=== PATIENT | male | born 1960 | race Caucasian/White ===

== ENCOUNTER 2018-08-20 05:41 | Inpatient (IN) | payer OTHER ==
[2018-08-20] MEDS ORDERED: CEFAZOLIN 2 GM/50 ML (PMX) 50 ML IVPB (06:00)
[2018-08-20] MEDS ORDERED: LACTATED RINGER'S 1,000 ML IV* (06:00)
[2018-08-20] MEDS ORDERED: HEPARIN 1000 UNITS/ML 10 ML INJ (07:29)
[2018-08-20] MEDS ORDERED: ROCURONIUM 50 MG INJ ×2 (07:52→08:44)
[2018-08-20] MEDS ORDERED: NEOSTIGMINE 3 MG/3 ML SYRINGE ×2 (07:52→08:44)
[2018-08-20] MEDS ORDERED: LIDOCAINE 2% (SDV) 5 ML INJ (07:52)
[2018-08-20] MEDS ORDERED: GLYCOPYRROLATE 0.4 MG INJ ×3 (07:52→08:44)
[2018-08-20] MEDS ORDERED: MEPERIDINE 100 MG INJ (07:52)
[2018-08-20] MEDS ORDERED: PROPOFOL 20 ML (07:52)
[2018-08-20] MEDS ORDERED: SUCCINYLCHOLINE CHLORIDE 100 MG/5 ML SYG IV (07:52)
[2018-08-20] MEDS: THROMBIN (BOVINE) 5,000 UNIT VIAL TP (08:56)
[2018-08-20] MEDS: BUPIVACAINE 0.5%/EPI (SDV) 30 ML INJ (08:56)
[2018-08-20] MEDS: GELATIN SIZE 100 SPONGE (08:56)
[2018-08-20] MEDS: CEFAZOLIN 1 GM INJ (08:56)
[2018-08-20] MEDS ORDERED: ATROPINE 1 MG/10 ML SYRINGE (09:19)
[2018-08-20] MEDS ORDERED: EPHEDrine 50 MG INJ (10:24)
[2018-08-20] MEDS ORDERED: GELATIN SIZE 100 SPONGE (11:39)
[2018-08-20] MEDS ORDERED: THROMBIN (BOVINE) 5,000 UNIT VIAL TP (12:55)
[2018-08-20] MEDS ORDERED: ONDANSETRON 4 MG INJ (14:56)
[2018-08-20] MEDS ORDERED: METOCLOPRAMIDE 10 MG INJ (14:56)
[2018-08-20] MEDS ORDERED: NACL 0.9% 3 ML SYG IV (15:00)
[2018-08-20] MEDS ORDERED: NALOXONE (0.4 MG/ML) INJ IV (15:00)
[2018-08-20] MEDS ORDERED: HYDROCODONE/APAP (5/325) TAB PO ×2 (15:00)
[2018-08-20] MEDS ORDERED: FENTAnyl 50 MCG/ML VIAL (15:20)
[2018-08-20] MEDS ORDERED: HYDROmorphONE 1 MG/5 ML IV SYRINGE IV ×3 (15:20→15:30)
[2018-08-20] MEDS: HYDROmorphONE 0.2 MG/ML PCA IV ×2 (15:28→21:24)
[2018-08-20] MEDS ORDERED: LABETALOL HCL 20MG INJ IV (15:30)
[2018-08-20] MEDS ORDERED: METOCLOPRAMIDE 10 MG INJ IV (15:30)
[2018-08-20] MEDS ORDERED: ONDANSETRON 4 MG INJ IV (15:30)
[2018-08-20] MEDS ORDERED: hydrALAzine 20 MG INJ IV (15:30)
[2018-08-20] MEDS ORDERED: OXYCODONE/ACETAMINOPHEN (5/325) TAB PO ×2 (15:30)
[2018-08-20] MEDS ORDERED: FENTAnyl 50 MCG/ML VIAL IV ×2 (15:30)
[2018-08-20] MEDS ORDERED: EPHEDrine SULFATE 50 MG/5 ML SYG IV (15:30)
[2018-08-20] MEDS ORDERED: MEPERIDINE 25 MG INJ IV (15:30)
[2018-08-20] MEDS ORDERED: DIPHENHYDRAMINE 50 MG INJ IV (15:30)
[2018-08-20] MEDS ORDERED: MIDAZOLAM 1 MG/ML 2 ML INJ IV (15:30)
[2018-08-20] MEDS: FENTAnyl 50 MCG/ML VIAL IV (16:09)
[2018-08-20] MEDS: HYDROmorphONE 1 MG/5 ML IV SYRINGE IV (16:10)
[2018-08-20] MEDS: CEFAZOLIN 1 GM/50 ML (PMX) 50 ML IVPB ×2 (17:49→23:33)
[2018-08-20] MEDS: DEXTROSE 5%-0.45% NACL 1,000 ML IV (17:49)
[2018-08-20] MEDS: GEMFIBROZIL 600 MG TAB PO (21:00)
[2018-08-20] MEDS: ACETAMINOPHEN 1000MG/100ML IV 100 ML IVPB (21:07)
[2018-08-20] MEDS: METHOCARBAMOL 500 MG TAB PO (21:09)
[2018-08-20] MEDS: ATORVASTATIN 40 MG TAB PO (21:09)
[2018-08-21] MEDS: DEXTROSE 5%-0.45% NACL 1,000 ML IV ×3 (04:10→20:47)
[2018-08-21] MEDS: METHOCARBAMOL 500 MG TAB PO ×3 (04:11→22:55)
[2018-08-21] MEDS: HYDROmorphONE 0.2 MG/ML PCA IV ×2 (04:20→11:10)
[2018-08-21 05:22] LABS: HEMATOCRIT 40.1 % (42.0-52.0); HEMOGLOBIN 13.5 g/dl (14.0-18.0)
[2018-08-21] MEDS: ACETAMINOPHEN 1000MG/100ML IV 100 ML IVPB ×2 (05:26→14:41)
[2018-08-21] MEDS: ONDANSETRON 4 MG INJ IV ×2 (05:26→14:32)
[2018-08-21] MEDS: CEFAZOLIN 1 GM/50 ML (PMX) 50 ML IVPB ×2 (05:41→15:08)
[2018-08-21 05:52] LABS: ANION GAP 12 (5-13); BLOOD UREA NITROGEN 6 mg/dl (7-20); CARBON DIOXIDE 29 mmol/L (21-31); CHLORIDE 95 mmol/L (97-110); CREATININE 0.61 mg/dl (0.61-1.24); Estimated GFR > 60 mL/min (>60); GLUCOSE 149 mg/dl (70-220); POTASSIUM 3.3 mmol/L (3.5-5.1); SODIUM 136 mmol/L (135-144)
[2018-08-21] MEDS: DOCUSATE SODIUM 100 MG CAP PO ×2 (08:53→20:42)
[2018-08-21] MEDS: BENAZEPRIL 20 MG TAB PO (08:56)
[2018-08-21] MEDS: PANTOPRAZOLE (EC) 40 MG TAB PO (08:56)
[2018-08-21] MEDS: GEMFIBROZIL 600 MG TAB PO ×2 (15:59→20:41)
[2018-08-21] MEDS: BUDESONIDE (EC) 3 MG CAP PO (15:59)
[2018-08-21] MEDS: ATORVASTATIN 40 MG TAB PO (20:42)
[2018-08-22] MEDS: DEXTROSE 5%-0.45% NACL 1,000 ML IV ×4 (01:35→22:08)
[2018-08-22] MEDS: ACETAMINOPHEN 325 MG TAB PO (01:40)
[2018-08-22] MEDS: ONDANSETRON 4 MG INJ IV (01:51)
[2018-08-22 05:00] LABS: ADD MAN DIFF? NO
[2018-08-22 05:03] LABS: ABNORMAL IP MESSAGE 1; BASOPHILS % 0.3 % (0.0-2.0); EOSINOPHILS % 0.1 % (0.0-7.0); HEMATOCRIT 38.1 % (42.0-52.0); HEMOGLOBIN 13.1 g/dl (14.0-18.0); LYMPHOCYTES # 1.2 10^3/ul (0.8-2.9); LYMPHOCYTES % 7.7 % (15.0-51.0); MEAN CORPUSCULAR HEMOGLOBIN 30.5 pg (29.0-33.0); MEAN CORPUSCULAR HGB CONC 34.4 g/dl (32.0-37.0); MEAN CORPUSCULAR VOLUME 88.8 fl (82.0-101.0); MEAN PLATELET VOLUME 9.7 fl (7.4-10.4); MONOCYTE # 1.7 10^3/ul (0.3-0.9); MONOCYTES % 10.4 % (0.0-11.0); NEUTROPHIL # 12.9 10^3/ul (1.6-7.5); NEUTROPHILS % 80.9 % (39.0-77.0); PLATELET COUNT 296 10^3/UL (140-415); POSITIVE DIFF @See below; RED BLOOD COUNT 4.29 10^6/ul (4.70-6.10); RED CELL DISTRIBUTION WIDTH 12.1 % (11.5-14.5)
[2018-08-22 05:03] LABS: WHITE BLOOD COUNT 15.9 10^3/ul (4.8-10.8)
[2018-08-22] MEDS: METHOCARBAMOL 500 MG TAB PO ×3 (05:19→22:00)
[2018-08-22] MEDS: PROCHLORPERAZINE 10 MG TAB PO ×2 (05:21→17:31)
[2018-08-22 05:33] LABS: ALANINE AMINOTRANSFERASE 42 IU/L (13-69); ALBUMIN 3.5 g/dl (3.3-4.9); ALBUMIN/GLOBULIN RATIO 1.29; ALKALINE PHOSPHATASE 51 IU/L (42-121); ANION GAP 11 (5-13); ASPARTATE AMINO TRANSFERASE 31 IU/L (15-46); BILIRUBIN,INDIRECT 0.8 mg/dl (0-1.1); BILIRUBIN,TOTAL 0.8 mg/dl (0.2-1.3); BLOOD UREA NITROGEN 5 mg/dl (7-20); CALCIUM 8.6 mg/dl (8.4-10.2); CARBON DIOXIDE 25 mmol/L (21-31); CHLORIDE 95 mmol/L (97-110); CREATININE 0.49 mg/dl (0.61-1.24); Estimated GFR > 60 mL/min (>60); GLUCOSE 171 mg/dl (70-220); POTASSIUM 3.2 mmol/L (3.5-5.1); SODIUM 131 mmol/L (135-144); TOTAL PROTEIN 6.2 g/dl (6.1-8.1)
[2018-08-22] MEDS: PANTOPRAZOLE (EC) 40 MG TAB PO (08:25)
[2018-08-22] MEDS ORDERED: HYDROmorphONE 0.5 MG/0.5 ML SYG IV (10:30)
[2018-08-22] MEDS: HYDROCODONE/APAP (10/325) TAB PO ×4 (10:34→18:48)
[2018-08-22] MEDS: POTASSIUM CHLORIDE 50 ML IVPB (12:51)
[2018-08-22] MEDS: BENAZEPRIL 20 MG TAB PO (18:20)
[2018-08-22] MEDS: DOCUSATE SODIUM 100 MG CAP PO ×2 (18:20→21:00)
[2018-08-22] MEDS: GEMFIBROZIL 600 MG TAB PO ×2 (18:21→21:00)
[2018-08-22] MEDS: BUDESONIDE (EC) 3 MG CAP PO (18:21)
[2018-08-22] MEDS ORDERED: LORAZEPAM 2 MG INJ IV (19:00)
[2018-08-22] MEDS ORDERED: morphine 2 MG INJ IV (19:00)
[2018-08-22] MEDS: ATORVASTATIN 40 MG TAB PO (21:00)
[2018-08-22] MEDS: DEXAMETHASONE 4 MG/ML 1 ML INJ IV (21:57)
[2018-08-22] MEDS: ACETAMINOPHEN 1000MG/100ML IV 100 ML IVPB (21:58)
[2018-08-23 05:15] LABS: ADD MAN DIFF? NO
[2018-08-23 05:25] LABS: BASOPHILS % 0.1 % (0.0-2.0); HEMATOCRIT 37.7 % (42.0-52.0); HEMOGLOBIN 12.9 g/dl (14.0-18.0); LYMPHOCYTES # 0.6 10^3/ul (0.8-2.9); LYMPHOCYTES % 4.7 % (15.0-51.0); MEAN CORPUSCULAR HEMOGLOBIN 30.2 pg (29.0-33.0); MEAN CORPUSCULAR HGB CONC 34.2 g/dl (32.0-37.0); MEAN CORPUSCULAR VOLUME 88.3 fl (82.0-101.0); MEAN PLATELET VOLUME 9.8 fl (7.4-10.4); MONOCYTE # 0.8 10^3/ul (0.3-0.9); MONOCYTES % 5.7 % (0.0-11.0); NEUTROPHIL # 11.6 10^3/ul (1.6-7.5); NEUTROPHILS % 88.8 % (39.0-77.0); PLATELET COUNT 286 10^3/UL (140-415); RED BLOOD COUNT 4.27 10^6/ul (4.70-6.10); RED CELL DISTRIBUTION WIDTH 12.1 % (11.5-14.5)
[2018-08-23 05:25] LABS: WHITE BLOOD COUNT 13.1 10^3/ul (4.8-10.8)
[2018-08-23 05:51] LABS: ANION GAP 9 (5-13); BLOOD UREA NITROGEN 6 mg/dl (7-20); CALCIUM 9.1 mg/dl (8.4-10.2); CARBON DIOXIDE 26 mmol/L (21-31); CHLORIDE 99 mmol/L (97-110); CREATININE 0.54 mg/dl (0.61-1.24); Estimated GFR > 60 mL/min (>60); GLUCOSE 221 mg/dl (70-220); POTASSIUM 4.6 mmol/L (3.5-5.1); SODIUM 134 mmol/L (135-144)
[2018-08-23] MEDS: METHOCARBAMOL 500 MG TAB PO ×3 (05:52→21:39)
[2018-08-23] MEDS: ACETAMINOPHEN 1000MG/100ML IV 100 ML IVPB ×2 (05:52→13:10)
[2018-08-23] MEDS: DEXTROSE 5%-0.45% NACL 1,000 ML IV (05:58)
[2018-08-23] MEDS: OXYCODONE/ACETAMINOPHEN (10/325) TAB PO ×3 (08:09→23:57)
[2018-08-23 08:12] LABS: ALANINE AMINOTRANSFERASE 35 IU/L (13-69); ALBUMIN 3.2 g/dl (3.3-4.9); ALKALINE PHOSPHATASE 67 IU/L (42-121); ASPARTATE AMINO TRANSFERASE 22 IU/L (15-46); BILIRUBIN,INDIRECT 0.5 mg/dl (0-1.1); BILIRUBIN,TOTAL 0.5 mg/dl (0.2-1.3); LIPASE 13 U/L (23-300); TOTAL PROTEIN 5.6 g/dl (6.1-8.1)
[2018-08-23 08:13] LABS: PHOSPHORUS 1.7 mg/dl (2.5-4.9)
[2018-08-23 08:13] LABS: MAGNESIUM 2.2 mg/dl (1.7-2.5)
[2018-08-23] MEDS: BUDESONIDE (EC) 3 MG CAP PO (09:13)
[2018-08-23] MEDS: SOD CHLORIDE 0.9% 1,000 ML IV ×2 (09:13→21:43)
[2018-08-23] MEDS: GEMFIBROZIL 600 MG TAB PO ×2 (09:13→21:39)
[2018-08-23] MEDS: DOCUSATE SODIUM 100 MG CAP PO ×2 (09:14→21:39)
[2018-08-23] MEDS: BENAZEPRIL 20 MG TAB PO (09:14)
[2018-08-23] MEDS: PANTOPRAZOLE (EC) 40 MG TAB PO (09:14)
[2018-08-23] MEDS: ATORVASTATIN 40 MG TAB PO (21:39)
[2018-08-24 05:28] LABS: ADD MAN DIFF? NO
[2018-08-24 05:29] LABS: BASOPHILS % 0.2 % (0.0-2.0); EOSINOPHILS # 0.2 10^3/ul (0.0-0.5); EOSINOPHILS % 2.2 % (0.0-7.0); HEMATOCRIT 32.5 % (42.0-52.0); HEMOGLOBIN 11.3 g/dl (14.0-18.0); LYMPHOCYTES # 1.5 10^3/ul (0.8-2.9); LYMPHOCYTES % 18.2 % (15.0-51.0); MEAN CORPUSCULAR HEMOGLOBIN 30.5 pg (29.0-33.0); MEAN CORPUSCULAR HGB CONC 34.8 g/dl (32.0-37.0); MEAN CORPUSCULAR VOLUME 87.8 fl (82.0-101.0); MEAN PLATELET VOLUME 9.6 fl (7.4-10.4); MONOCYTE # 0.8 10^3/ul (0.3-0.9); MONOCYTES % 10.2 % (0.0-11.0); NEUTROPHIL # 5.7 10^3/ul (1.6-7.5); NEUTROPHILS % 68.5 % (39.0-77.0); PLATELET COUNT 333 10^3/UL (140-415); RED CELL DISTRIBUTION WIDTH 12.1 % (11.5-14.5)
[2018-08-24 05:29] LABS: WHITE BLOOD COUNT 8.3 10^3/ul (4.8-10.8)
[2018-08-24] MEDS: METHOCARBAMOL 500 MG TAB PO ×3 (05:59→22:00)
[2018-08-24 06:07] LABS: ANION GAP 9 (5-13); BLOOD UREA NITROGEN 10 mg/dl (7-20); CALCIUM 8.2 mg/dl (8.4-10.2); CARBON DIOXIDE 24 mmol/L (21-31); CHLORIDE 102 mmol/L (97-110); Estimated GFR > 60 mL/min (>60); GLUCOSE 135 mg/dl (70-220); MAGNESIUM 2.2 mg/dl (1.7-2.5); PHOSPHORUS 2.7 mg/dl (2.5-4.9); POTASSIUM 3.3 mmol/L (3.5-5.1); SODIUM 135 mmol/L (135-144)
[2018-08-24] MEDS: GEMFIBROZIL 600 MG TAB PO ×2 (09:07→20:14)
[2018-08-24] MEDS: BUDESONIDE (EC) 3 MG CAP PO (09:07)
[2018-08-24] MEDS: POTASSIUM CHLORIDE (SR) 20 MEQ TAB PO (09:07)
[2018-08-24] MEDS: DOCUSATE SODIUM 100 MG CAP PO ×2 (09:07→20:15)
[2018-08-24] MEDS: BENAZEPRIL 20 MG TAB PO (09:08)
[2018-08-24] MEDS: OXYCODONE/ACETAMINOPHEN (10/325) TAB PO ×3 (09:08→20:19)
[2018-08-24] MEDS: PANTOPRAZOLE (EC) 40 MG TAB PO (09:08)
[2018-08-24] MEDS: SOD CHLORIDE 0.9% 1,000 ML IV (10:09)
[2018-08-24] MEDS: ATORVASTATIN 40 MG TAB PO (20:15)
[2018-08-25] MEDS: OXYCODONE/ACETAMINOPHEN (10/325) TAB PO ×4 (04:04→20:22)
[2018-08-25] MEDS: AL HYDROX/MG HYDROX/SIMETH 30 ML CUP PO ×3 (04:05→18:37)
[2018-08-25 04:59] LABS: ADD MAN DIFF? NO
[2018-08-25 05:00] LABS: BASOPHIL # 0.1 10^3/ul (0.0-0.1); BASOPHILS % 0.7 % (0.0-2.0); EOSINOPHILS # 0.2 10^3/ul (0.0-0.5); EOSINOPHILS % 2.6 % (0.0-7.0); HEMATOCRIT 34.1 % (42.0-52.0); HEMOGLOBIN 11.7 g/dl (14.0-18.0); LYMPHOCYTES # 1.8 10^3/ul (0.8-2.9); LYMPHOCYTES % 23.6 % (15.0-51.0); MEAN CORPUSCULAR HEMOGLOBIN 30.5 pg (29.0-33.0); MEAN CORPUSCULAR HGB CONC 34.3 g/dl (32.0-37.0); MEAN CORPUSCULAR VOLUME 88.8 fl (82.0-101.0); MEAN PLATELET VOLUME 9.4 fl (7.4-10.4); MONOCYTE # 0.9 10^3/ul (0.3-0.9); MONOCYTES % 11.5 % (0.0-11.0); NEUTROPHIL # 4.7 10^3/ul (1.6-7.5); NEUTROPHILS % 61.1 % (39.0-77.0); PLATELET COUNT 362 10^3/UL (140-415); RED BLOOD COUNT 3.84 10^6/ul (4.70-6.10); RED CELL DISTRIBUTION WIDTH 12.6 % (11.5-14.5)
[2018-08-25 05:00] LABS: WHITE BLOOD COUNT 7.6 10^3/ul (4.8-10.8)
[2018-08-25 05:29] LABS: ANION GAP 10 (5-13); BLOOD UREA NITROGEN 11 mg/dl (7-20); CALCIUM 8.6 mg/dl (8.4-10.2); CARBON DIOXIDE 25 mmol/L (21-31); CHLORIDE 100 mmol/L (97-110); CREATININE 0.63 mg/dl (0.61-1.24); Estimated GFR > 60 mL/min (>60); GLUCOSE 147 mg/dl (70-220); PHOSPHORUS 2.8 mg/dl (2.5-4.9); SODIUM 135 mmol/L (135-144)
[2018-08-25] MEDS: METHOCARBAMOL 500 MG TAB PO ×3 (06:12→22:11)
[2018-08-25] MEDS: GEMFIBROZIL 600 MG TAB PO ×2 (08:26→20:30)
[2018-08-25] MEDS: PANTOPRAZOLE (EC) 40 MG TAB PO (08:26)
[2018-08-25] MEDS: BENAZEPRIL 20 MG TAB PO (08:26)
[2018-08-25] MEDS: DOCUSATE SODIUM 100 MG CAP PO ×2 (08:26→20:23)
[2018-08-25] MEDS: BUDESONIDE (EC) 3 MG CAP PO (08:27)
[2018-08-25] MEDS: METOPROLOL (XL) 25 MG TAB PO ×2 (08:27→20:29)
[2018-08-25] MEDS: AMLODIPINE 5 MG TAB PO ×2 (08:28→20:27)
[2018-08-25 12:39] LABS: ADD UMIC YES; UR ASCORBIC ACID NEGATIVE (NEGATIVE); UR BILIRUBIN (Dip) NEGATIVE (NEGATIVE); UR BLOOD (Dip) 1+ mg/dL (NEGATIVE); UR CLARITY CLEAR (CLEAR); UR COLOR YELLOW (YELLOW); UR GLUCOSE (Dip) NEGATIVE (NEGATIVE); UR KETONES (Dip) NEGATIVE (NEGATIVE); UR LEUKOCYTE ESTERASE (Dip) NEGATIVE Leu/ul (NEGATIVE); UR NITRITE (Dip) NEGATIVE (NEGATIVE); UR RBC 6 /HPF (0-5); UR SPECIFIC GRAVITY (Dip) 1.013 (1.003-1.030); UR TOTAL PROTEIN (Dip) NEGATIVE (NEGATIVE); UR UROBILINOGEN (Dip) NEGATIVE (NEGATIVE); UR WBC 0 /HPF (0-5)
[2018-08-25] MEDS: NA PHOSPHATE/BIPHOS 133 ML ENEMA PR (15:36)
[2018-08-25] MEDS: ATORVASTATIN 40 MG TAB PO (20:24)
[2018-08-26] MEDS: OXYCODONE/ACETAMINOPHEN (10/325) TAB PO ×3 (01:11→12:31)
[2018-08-26] MEDS: METHOCARBAMOL 500 MG TAB PO ×2 (06:20→13:12)
[2018-08-26] MEDS: PANTOPRAZOLE (EC) 40 MG TAB PO (09:16)
[2018-08-26] MEDS: GEMFIBROZIL 600 MG TAB PO (09:16)
[2018-08-26] MEDS: DOCUSATE SODIUM 100 MG CAP PO (09:16)
[2018-08-26] MEDS: BUDESONIDE (EC) 3 MG CAP PO (09:16)
[2018-08-26] MEDS: METOPROLOL (XL) 25 MG TAB PO (09:18)
[2018-08-26] MEDS: AMLODIPINE 5 MG TAB PO (09:18)
[2018-08-26] MEDS: BENAZEPRIL 20 MG TAB PO (09:19)
== END 2018-08-26 14:23 | disposition home or self-care (01) | DRG 454 ==
LOC: REC 05:41 → MS1 17:01
PROC: 0SG00A0 Fusion of Lumbar Vertebral Joint with Interbody Fusion Device, Anterior Approach, Anterior Column, Open Approach (ICD-10-PCS; principal; 2018-08-20 07:56)
PROC: 0SG00K1 Fusion of Lumbar Vertebral Joint with Nonautologous Tissue Substitute, Posterior Approach, Posterior Column, Open Approach (ICD-10-PCS; 2018-08-20 07:56)
PROC: 0SB20ZZ Excision of Lumbar Vertebral Disc, Open Approach (ICD-10-PCS; 2018-08-20 07:56)
PROC: 3E0U0GB Introduction of Recombinant Bone Morphogenetic Protein into Joints, Open Approach (ICD-10-PCS; 2018-08-20 07:56)
PROC: 4A11X4G Monitoring of Peripheral Nervous Electrical Activity, Intraoperative, External Approach (ICD-10-PCS; 2018-08-20 07:56)
DX: M51.16 Intervertebral disc disorders with radiculopathy, lumbar region (principal); K50.90 Crohn's disease, unspecified, without complications; K56.7 Ileus, unspecified; M48.061 Spinal stenosis, lumbar region without neurogenic claudication; E66.9 Obesity, unspecified; E78.5 Hyperlipidemia, unspecified; I10 Essential (primary) hypertension; R10.13 Epigastric pain; K21.9 Gastro-esophageal reflux disease without esophagitis; E87.6 Hypokalemia; Z68.31 Body mass index [BMI] 31.0-31.9, adult
CPT/HCPCS: 72110; 80048; 80053; 80076; 81001; 83690; 83735; 84100; 85014; 85018; 85025; 86850; 86900; 86901; 86920; 97110; 97116; 97163; 97530